=== PATIENT | male | born 1960 | race Caucasian/White ===

== ENCOUNTER 2019-09-14 03:00 | Emergency (ER) | payer SELFPAY ==
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
[2019-09-14 06:34] VITALS: BP 151/92
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
== END 2019-09-14 03:53 | disposition home or self-care (01) ==
LOC: ED 03:00
DX: S05.11XA Contusion of eyeball and orbital tissues, right eye, initial encounter (principal); Y04.2XXA Assault by strike against or bumped into by another person, initial encounter; Y93.89 Activity, other specified; Y99.0 Civilian activity done for income or pay
CPT/HCPCS: 70486; 99282; 99283